=== PATIENT | male | born 1965 | race Caucasian/White ===

== ENCOUNTER 2016-10-18 20:56 | Emergency (ER) | payer OTHER ==
[~2016-10-18] VITALS: Ht 175.3 cm; Wt 83.9 kg
[2016-10-18 21:29] LABS: ABSOLUTE BASOPHIL COUNT 0 /CUMM (0.0-0.2); ABSOLUTE EOSINOPHIL COUNT 0.1 /CUMM (0.0-0.7); ABSOLUTE GRANULOCYTE CT 8.3 /CUMM (1.4-6.5); ABSOLUTE LYMPH COUNT 1.9 /CUMM (1.2-3.4); ABSOLUTE MONOCYTE COUNT 0.7 /CUMM (0.10-0.60); BASOPHIL % 0.3 % (0.0-2.0); EOSINOPHIL % 1.3 % (0-5); GRANULOCYTE % 75.3 % (42.2-75.2); HEMATOCRIT 49.3 % (42-52); MEAN CORPUSCULAR HGB 28.5 PG (27.0-31.0); MEAN CORPUSCULAR HGB CONC 33.3 G/DL (33.0-37.0); MEAN CORPUSCULAR VOLUME 85.6 FL (80.0-94.0); MEAN PLATELET VOLUME 8.3 FL (7.4-10.4); PLATELET COUNT 212 /CUMM (130-400); RBC DISTRIBUTION WIDTH 13.9 % (11.5-14.5); RED BLOOD CELL CT 5.77 /CUMM (4.70-6.10); WHITE BLOOD CELL COUNT 11.1 /CUMM (4.8-10.8)
--- NOTE | 2016-10-18 23:20 | ED GI/GU/ABDOMINAL COMPLAINT ---
History of Present Illness General Chief Complaint: Abdominal Pain/Flank Pain Stated Complaint: UPPER ABD PAIN Source: patient, family, old records Exam Limitations: no limitations Vital Signs & Intake/Output Vital Signs & Intake/Output Vital Signs Date Time Temp Pulse Resp B/P B/P Pulse O2 O2 Flow FiO2 Mean Ox Delivery Rate 10/19 0041 98.1 84 20 113/59 96 Room Air 10/18 2337 97 Room Air 10/18 2100 98.7 96 18 147/89 96 Room Air ED Intake and Output 10/19 0000 10/18 1200 Intake Total Output Total Balance Patient 185 lb Weight Weight Reported by Patient Measurement Method Allergies Coded Allergies: No Known Drug Allergies (NKDA 10/18/16) Triage Note: PT TO ED C/O PAIN THAT STARTED IN THE EPIGASTRIC AREA YESTERDAY. TODAY, PAIN HAS BEEN EPIGASTRIC TO MID ABDOMEN DOWN TO BELLOW UMBILICOUS. TRIED PECID AC. STATES IS BELCHING MORE THAN USUAL. TRIED GAS EX LAST NIGHT, NO RELIEF. DENIES N/V/D. STATES HAS URINARY FREQUENCY. PMH OF NIDDM Triage Nurses Notes Reviewed? yes Onset: 1 day Duration: day(s):, constant, continues in ED Timing: recent history Quality/Severity: aching, moderate, severe Location: epigastric Radiation: periumbilical Activities at Onset: none Prior Abdominal Problems: none Past Sexual History: Unobtainable at this time No Modifying Factors: none Associated Symptoms: abdominal pain HPI: 1 day prior to admission patient complains of moderate to severe epigastric pain radiating to the periumbilical area constant without improvement from Gas-X Pepcid. Denies fever chills nausea vomiting diarrhea chest pain cough shortness breath headache dysuria rash bleeding. Past History Travel History Traveled to [place] past 21 day No Medical History Any Pertinent Medical History? see below for history Endocrine: diabetes Surgical History Surgical History: non-contributory Psychosocial History What is your primary language Telugu Tobacco Use: Current Daily Use Daily Tobacco Use Amount/Type: => 5 Cigarettes daily ETOH Use: denies use Illicit Drug Use: denies illicit drug use Family History Hx Contributory? No Review of Systems Review of Systems Constitutional: Reports: no symptoms. EENTM: Reports: no symptoms. Respiratory: Reports: no symptoms. Cardiovascular: Reports: no symptoms. GI: Reports: see HPI, abdominal pain. Genitourinary: Reports: no symptoms. Musculoskeletal: Reports: no symptoms. Skin: Reports: no symptoms. Neurological/Psychological: Reports: no symptoms. Hematologic/Endocrine: Reports: no symptoms. Immunologic/Allergic: Reports: no symptoms. All Other Systems: Reviewed and Negative Physical Exam Physical Exam General Appearance: well developed/nourished, alert, awake, anxious, moderate distress Head: atraumatic, normal appearance Eyes: Bilateral: normal appearance, PERRL, EOMI, normal inspection. Ears, Nose, Throat, Mouth: hearing grossly normal, moist mucous membrane Neck: normal inspection, supple, full range of motion, normal alignment Respiratory: normal breath sounds, chest non-tender, no respiratory distress, quiet respiration, lungs clear Cardiovascular: regular rate/rhythm, normal peripheral pulses, norml femoral pulses equa Peripheral Pulses: 4+ carotid (R), 4+ carotid (L) Gastrointestinal: normal bowel sounds, soft, non-tender, no organomegaly Male Genitals: normal genitalia Back: normal inspection, normal range of motion Extremities: normal range of motion, no ligament instability Neurologic/Psych: no motor/sensory deficits, awake, alert, oriented x 3, normal gait, normal mood/affect Skin: intact, normal color, warm/dry Core Measures ACS in differential dx? No Severe Sepsis Present: No Septic Shock Present: No Progress Differential Diagnosis: appendicitis, biliary colic, cholecystitis, gastritis, pancreatitis, peptic ulcer Plan of Care: Orders Procedure Date/time Status URINALYSIS 10/18 2106 Complete LIPASE 10/18 2106 Complete COMPREHENSIVE METABOLIC PANEL 10/18 2106 Complete CBC WITHOUT DIFFERENTIAL 10/18 2106 Complete AMYLASE 10/18 2106 Complete Laboratory Tests 10/18/162120: Urinalysis LIGHT H, Urine Color YEL, Urine Clarity HAZY H, Urine pH 6.5, Ur Specific [place] 1.015, Urine Protein TRACE H, Urine Ketones NEG, Urine Nitrite POS H, Urine Bilirubin NEG, Urine Urobilinogen 0.2, Ur Leukocyte Esterase NEG, Ur Microscopic SEDIMENT EXAMINED, Urine RBC RARE, Urine WBC 1-3 H, Ur Epithelial Cells FEW, Urine Bacteria MANY H, Urine Mucus FEW, Urine Hemoglobin TRACE-INTACT H, Urine Glucose NEG 10/18/162112: Anion Gap 11, Estimated GFR > 60, BUN/Creatinine Ratio 11.1, Glucose 148 H, Calcium 9.3, Total Bilirubin 0.6, AST 18, ALT 40, Alkaline Phosphatase 64, Total Protein 7.1, Albumin 4.2, Globulin 2.9, Albumin/Globulin Ratio 1.4, Amylase 34, Lipase 201, CBC w Diff NO MAN DIFF REQ, RBC 5.77, MCV 85.6, MCH 28.5, RDW 13.9, MPV 8.3, Gran % 75.3 H, Lymphocytes % 16.8 L, Monocytes % 6.3, Eosinophils % 1.3, Basophils % 0.3, Absolute Granulocytes 8.3 H, Absolute Lymphocytes 1.9, Absolute Monocytes 0.7 H, Absolute Eosinophils 0.1, Absolute Basophils 0, PUBS MCHC 33.3 Diagnostic Imaging: Viewed by Me: CT Scan. Discussed w/RAD: CT Scan. Radiology Impression: GASTROINTESTINAL TRACT: The stomach is unremarkable. Mild wall thickening of the third and fourth portions of the duodenum likely reactive. The remainder of the small bowel is unremarkable. Normal appendix. No colonic wall thickening or inflammatory change. No free air or free fluid. ABDOMINAL WALL: No significant hernia is appreciated. LYMPH NODES: Mildly prominent peripancreatic lymph nodes likely reactive. VASCULAR: Mild atherosclerotic calcifications. PELVIC VISCERA: The prostate and seminal vesicles are unremarkable. OSSEOUS STRUCTURES: No acute or suspicious osseous abnormality. IMPRESSION: Inflammatory changes surrounding the pancreatic head can be seen with pancreatitis. Mildly prominent adjacent lymph nodes. Normal appendix. Hypoattenuating lesion in the left lobe of the liver is nonspecific. The appearance favors a cyst or hemangioma. Consider ultrasound to further evaluate. Initial ED EKG: none Departure Departure Time of Disposition: 46 Disposition: HOME OR SELF CARE Condition: Stable Clinical Impression Primary Impression: Pancreatitis, acute Qualifiers: Pancreatitis type: unspecified pancreatitis type Acute pancreatitis complication: unspecified Qualified Code: K85.90 - Acute pancreatitis without necrosis or infection, unspecified Secondary Impressions: Acute duodenitis Referrals: ANNA GARCIA,TRENT Christiansen (PCP/Family) TAMMY GARCIA,JARAD Menjivar Call for GI follow up Departure Forms: Customer Survey General Discharge Information
--- NOTE | 2016-10-19 00:21 | CT SCAN REPORT ---
EXAMINATION: CT ABDOMEN AND PELVIS WITH CONTRAST CLINICAL INFORMATION: Diabetic with epigastric pain extending to the umbilicus. COMPARISON: None TECHNIQUE: Multidetector volumetric imaging was performed of the abdomen and pelvis before and after the IV administration of 95 mL of Optiray 320 intravenous contrast. Sagittal and coronal reformatted images were obtained on the technologist's workstation. DLP: 420 mGy-cm FINDINGS: LUNG BASES: The visualized lung bases are unremarkable. LIVER, GALLBLADDER, AND BILIARY TREE: The liver is normal in size, shape, and attenuation. There is a 1.4 cm hypoattenuating lesion in segment 2 of the liver measuring higher than simple fluid. No biliary ductal dilatation is present. The gallbladder is unremarkable with no evidence of radiopaque gallstones, gallbladder wall thickening, or obvious pericholecystic inflammatory changes. PANCREAS: There is inflammatory stranding surrounding the head of the pancreas. The pancreatic parenchyma demonstrates mild fatty atrophy with no focal lesion. No fluid collection. SPLEEN: Unremarkable. ADRENAL GLANDS: Unremarkable. KIDNEYS AND URETERS: The kidneys are normal in size, shape, and attenuation. No hydronephrosis, hydroureter, or calculi seen. No perinephric stranding. BLADDER: Unremarkable. GASTROINTESTINAL TRACT: The stomach is unremarkable. Mild wall thickening of the third and fourth portions of the duodenum likely reactive. The remainder of the small bowel is unremarkable. Normal appendix. No colonic wall thickening or inflammatory change. No free air or free fluid. ABDOMINAL WALL: No significant hernia is appreciated. LYMPH NODES: Mildly prominent peripancreatic lymph nodes likely reactive. VASCULAR: Mild atherosclerotic calcifications. PELVIC VISCERA: The prostate and seminal vesicles are unremarkable. OSSEOUS STRUCTURES: No acute or suspicious osseous abnormality. IMPRESSION: Inflammatory changes surrounding the pancreatic head can be seen with pancreatitis. Mildly prominent adjacent lymph nodes. Normal appendix. Hypoattenuating lesion in the left lobe of the liver is nonspecific. The appearance favors a cyst or hemangioma. Consider ultrasound to further evaluate.
[2016-10-19 00:41] VITALS: BP 113/59
[2016-10-19] MEDS ORDERED: PROTONIX20 M1 PO (00:56)
[2016-10-19] MEDS ORDERED: REGLAN10 M1 PO (00:56)
[2016-10-19] MEDS ORDERED: LEVSIN-SL0.125 MG SL (00:56)
== END 2016-10-19 01:01 ==
LOC: ERH 20:56
PROVIDERS: Emergency Medicine
DX: K85.90 Acute pancreatitis without necrosis or infection, unspecified (principal); K29.80 Duodenitis without bleeding
CPT/HCPCS: 74177; 81001; 96365; 96375; J0131; J2765